=== PATIENT | male | born 1995 | race Caucasian/White ===

== ENCOUNTER 2024-08-10 00:41 | Emergency (ER) | payer SELFPAY ==
[2024-08-10] MEDS ORDERED: Ibuprofen 600 MG TAB ONE (01:08)
[2024-08-10] MEDS ORDERED: Ondansetron ODT 4 MG TAB ONE (01:08)
[2024-08-10] MEDS ORDERED: Acetaminophen 500 MG TAB ONE (01:08)
[2024-08-10] MEDS ORDERED: Amoxicillin/Potassium Clav 875 MG TAB ONE (01:08)
[2024-08-10] MEDS ORDERED: Dexamethasone 10 MG/ML VIAL ONE (01:08)
== END 2024-08-10 01:51 | disposition home or self-care (01) ==
LOC: MADERS 00:41
DX: J02.9 Acute pharyngitis, unspecified (principal); M26.602 Left temporomandibular joint disorder, unspecified; F17.210 Nicotine dependence, cigarettes, uncomplicated
CPT/HCPCS: 87081; 87428; 87430; 96372; 99283; J1100; Q0162

== ENCOUNTER 2025-07-09 21:16 | Emergency (ER) | payer SELFPAY ==
[2025-07-09] MEDS ORDERED: Prochlorperazine 10 MG/2 ML VIAL ONE (22:32)
[2025-07-09] MEDS ORDERED: Ketorolac Tromethamine 30 MG (1 mL) VIAL ONE (22:32)
[2025-07-09] MEDS ORDERED: diphenhydrAMINE 50 MG/ML VIAL ONE (22:32)
== END 2025-07-09 23:39 | disposition home or self-care (01) ==
LOC: MADERS 21:16
DX: J06.9 Acute upper respiratory infection, unspecified (principal); B97.89 Other viral agents as the cause of diseases classified elsewhere; G43.909 Migraine, unspecified, not intractable, without status migrainosus
CPT/HCPCS: 87428; 96365; 96375; J0780; J1200; J1885; J2919; J7030

== ENCOUNTER 2025-07-18 18:05 | Emergency (ER) | payer SELFPAY ==
[2025-07-18] MEDS ORDERED: Ibuprofen 800 MG TAB ONE (18:25)
== END 2025-07-18 18:27 | disposition home or self-care (01) ==
LOC: MADERS 18:05
DX: K08.89 Other specified disorders of teeth and supporting structures (principal)
CPT/HCPCS: 99282